=== PATIENT | female | born 1995 | race Caucasian/White ===

== ENCOUNTER → 2020-05-21 | Outpatient (CLI) | payer OTHER ==
[~2020-05-21] MED LIST: CELEXA40 MG PO; LOESTRIN1 EAC1; PRILOSEC 20 MG20 MG
== END ==
LOC: LAB 14:17
PROVIDERS: ATTEND Nurse Practitioner
DX: R09.81 Nasal congestion (principal); R53.83 Other fatigue; Z20.828 Contact with and (suspected) exposure to other viral communicable diseases